=== PATIENT | male | born 1950 | race Caucasian/White ===

== ENCOUNTER 2019-05-04 07:02 | Outpatient (CLI) | payer MEDICARE ==
[~2019-05-04] VITALS: Ht 182.9 cm; Wt 93.0 kg
[~2019-05-04 07:02] MED LIST: ASPI-1265 PO; ATOR40TA PO; LISI-604 PO; METO25TA6 PO; OXYC-658; OXYC10TA57; OXYC20TA55; TAMS0.4C32; TEST200V10; TICA90TA PO
[2019-05-04] MEDS ORDERED: albuterol 2.5 MG/3 ML nebule NEB PRN (08:05)
== END 2019-05-04 23:59 | disposition home or self-care (01) ==
LOC: RT 07:02
PROVIDERS: ATTEND Internal Medicine Pulmonary Disease
DX: G47.33 Obstructive sleep apnea (adult) (pediatric) (principal); R05 Cough
CPT/HCPCS: 94060; 94727; 94729; 94760